=== PATIENT | female | born 1955 | race Caucasian/White ===

== ENCOUNTER 2021-01-02 20:26 | Outpatient (REF) | payer OTHER, SELFPAY | END 2021-01-02 20:27 | disposition home or self-care (01) | LOC: LBN 20:26 | PROVIDERS: Visit Provider Physician Assistant Medical | DX: L02.414 Cutaneous abscess of left upper limb (principal) | CPT/HCPCS: 87070; 87205 ==

== ENCOUNTER 2021-04-08 13:49 | Outpatient (REF) | payer MEDICARE, SELFPAY ==
--- NOTE | 2021-04-08 09:00 | PAPFT_PTH ---
PATIENT: Amber Puente LOC: [facility]#:[id number] AGE/SX: 65/F ROOM: RE04/08/[address]: Gosia Caldwell : 1955 BED: DIS: 04/08/2021 SPEC #: [id number] RECD: 04/08/21 18:28 STATUS: MILKA MCKEON #: [id number] KASANDRA: 04/08/21 09:[address]: Gosia Caldwell DEPT: [facility] [place] Cytology RECD BY: Emma Mathews Tissues: 1 - CX/ENDOCX FOR PAP SMEARS Procedures: PAP THIN PREP/[facility] Screening HPV DNA PROBE Comments: [id number]
== END 2021-04-08 13:50 | disposition home or self-care (01) ==
LOC: NCHCN 13:49
PROVIDERS: Visit Provider Nurse Practitioner Community Health
DX: Z12.4 Encounter for screening for malignant neoplasm of cervix (principal); Z11.51 Encounter for screening for human papillomavirus (HPV); Z01.419 Encounter for gynecological examination (general) (routine) without abnormal findings
CPT/HCPCS: 88142; 87624

== ENCOUNTER 2022-05-20 17:49 | Outpatient (REF) | payer MEDICARE, BC, SELFPAY ==
[2022-05-20 21:02] LABS: Abs Immature Grans 0.01 10^3/uL (0.0-0.06); Absolute Basophil Count 0.03 10^3/uL (0.0-0.2); Absolute Lymphocyte Count 1.71 10^3/uL (1.2-3.4); Absolute Monocyte Count 0.59 10^3/uL (0.1-0.8); Absolute Neutrophil Count 4.66 10^3/uL (1.2-6.7); Basophils % 0.4; Eosinophils % 1.4; HCT 36.5 % (36.0-46.0); HGB 12.3 g/dL (11.2-15.7); Immature Grans % 0.1; Lymphocytes % 24.1; MCH 31.9 pg (27.0-33.0); MCHC 33.7 % (32.0-36.0); MCV 95 fL (80-95); Monocytes % 8.3; Neutrophils % 65.7; Platelet Count 325 10^3/uL (130-400); RBC 3.85 10^6/uL (3.93-5.22); RDW 12.6 % (11.7-14.6); RDW-SD 43.8 fL
[2022-05-20 21:28] LABS: ALT 26 U/L (14-59); AST 20 U/L (15-37); Alkaline Phosphatase 58 U/L (46-116); Anion Gap 8.5 mmol/L (3-11); BUN 17 mg/dL (7-18); Bilirubin, Total 0.1 mg/dL (0.2-1.0); CO2 26.5 mmol/L (21.0-32.0); CREATININE 0.8 mg/dL (0.55-1.02); Calcium 9.6 mg/dL (8.5-10.1); Calculated LDL 111 mg/dL (<100); Chloride 107 mmol/L (98-107); Cholesterol 196 mg/dL (<200); Estimated GFR 81.21 (mL/min/1.73m2); Glucose 109 mg/dL (74-106); HDL Cholesterol 63 mg/dL (40-60); Potassium 4.2 mmol/L (3.5-5.1); Sodium 142 mmol/L (136-145); TSH 0.12 uIU/mL (0.36-3.74); Total Protein 7.3 g/dL (6.4-8.2); Triglyceride 110 mg/dL (<150)
[2022-05-20 21:35] LABS: Hemoglobin A1C 5.8 % (<5.7)
[2022-05-20 21:41] LABS: Vitamin D 25 Total 29.4 ng/mL (30-100)
[2022-05-20 22:24] LABS: FREE T4 1.15 ng/dL (0.76-1.46)
== END 2022-05-20 17:50 | disposition home or self-care (01) ==
LOC: NCHCN 17:49
PROVIDERS: Visit Provider Nurse Practitioner Family
DX: E03.9 Hypothyroidism, unspecified (principal); M85.88 Other specified disorders of bone density and structure, other site; Z00.00 Encounter for general adult medical examination without abnormal findings
CPT/HCPCS: 80053; 80061; 82306; 83036; 84439; 84443; 85025

== ENCOUNTER 2022-10-19 16:18 | Outpatient (REF) | payer MEDICARE, BC, SELFPAY ==
[2022-10-19 17:39] LABS: Hemoglobin A1C 5.6 % (<5.7)
[2022-10-19 17:40] LABS: Vitamin D 25 Total 31.9 ng/mL (30-100)
[2022-10-20 17:14] LABS: TSH 0.64 uIU/mL (0.36-3.74)
== END 2022-10-19 16:19 | disposition home or self-care (01) ==
LOC: NCHCN 16:18
PROVIDERS: PCP Nurse Practitioner Family; Visit Provider Family Medicine
DX: E03.9 Hypothyroidism, unspecified (principal); E55.9 Vitamin D deficiency, unspecified; R73.03 Prediabetes
CPT/HCPCS: 82306; 83036; 84439; 84443

== ENCOUNTER 2023-01-24 13:12 | Outpatient (REF) | payer MEDICARE, BC, SELFPAY ==
[2023-01-24 16:10] LABS: FREE T4 1.22 ng/dL (0.76-1.46); TSH 0.04 uIU/mL (0.36-3.74)
[2023-01-24 16:29] LABS: Hemoglobin A1C 5.4 % (<5.7)
== END 2023-01-24 13:13 | disposition home or self-care (01) ==
LOC: LBN 13:12
PROVIDERS: PCP Nurse Practitioner Family; Visit Provider Internal Medicine Endocrinology, Diabetes & Metabolism
DX: E03.9 Hypothyroidism, unspecified (principal); R73.03 Prediabetes
CPT/HCPCS: 83036; 84439; 84443

== ENCOUNTER 2023-05-20 20:12 | Outpatient (REF) | payer MEDICARE, BC, SELFPAY ==
[2023-05-20 21:02] LABS: Abs Immature Grans 0.02 10^3/uL (0.0-0.06); Absolute Basophil Count 0.05 10^3/uL (0.0-0.2); Absolute Eosinophil Count 0.17 10^3/uL (0.0-0.7); Absolute Lymphocyte Count 1.97 10^3/uL (1.2-3.4); Absolute Monocyte Count 0.55 10^3/uL (0.1-0.8); Absolute Neutrophil Count 3.73 10^3/uL (1.2-6.7); Basophils % 0.8; Eosinophils % 2.6; HCT 35.5 % (36.0-46.0); HGB 12.3 g/dL (11.2-15.7); Immature Grans % 0.3; Lymphocytes % 30.4; MCH 32.5 pg (27.0-33.0); MCHC 34.6 % (32.0-36.0); MCV 94 fL (80-95); MPV 9.8 fL (8.0-11.0); Monocytes % 8.5; Neutrophils % 57.4; Platelet Count 322 10^3/uL (130-400); RBC 3.79 10^6/uL (3.93-5.22); RDW 12.8 % (11.7-14.6); RDW-SD 43.8 fL; WBC 6.49 10^3/uL (4.4-10.8)
[2023-05-20 21:21] LABS: C-Reactive Protein < 0.05 mg/dL (0.0-0.3); Hemoglobin A1C 5.5 % (<5.7)
[2023-05-21 11:28] LABS: ESR (LRH) 11 mm/hr
== END 2023-05-20 20:13 | disposition home or self-care (01) ==
LOC: NCHCN 20:12
PROVIDERS: PCP Nurse Practitioner Family; Visit Provider Family Medicine
DX: G45.3 Amaurosis fugax (principal)
CPT/HCPCS: 85652; 83036; 85025; 86140

== ENCOUNTER 2023-09-05 12:07 | Outpatient (REF) | payer MEDICARE, BC, SELFPAY ==
--- OUTSIDE RECORDS SUMMARY | 2023-09-05 12:24 | XMS_ITS | CCD ---
Author Name Unknown Address [address] [place] [address] [phone] Organization Unknown Address [address] [place] [address] [phone] Care Team Providers Care Back Stayer Name Role Phone FRIDA, SHIVAM Chacon Attending Physician [phone] Vital Signs Vital Sign Value Unit Date/Time Recent/Initial ? BP Systolic 126 mmHg 09/23/2022 13:42 Initial VS BP Diastolic 70 mmHg 09/23/2022 13:42 Initia l VS Respiratory Rate 16 bpm 09/23/2022 13:42 In itial VS Heart Rate 65 bpm 09/23/2022 13:42 Initial VS O2 % BldC Oximetry 98 % 09/23/2022 13:42 Initial VS Body Temperature 36.7 degrees 09/23/2022 13:42 In itial VS BP Systolic 129 mmHg 09/23/2022 13:48 Most Re cent VS BP Diastolic 73 mmHg 09/23/2022 13:48 Most R ecent VS Respiratory Rate 17 bpm 09/23/2022 13:[address] Recent VS Heart Rate 64 bpm 09/23/2022 13:48 Most Rec ent VS O2 % BldC Oximetry 100 % 09/23/2022 13:48 Most Recent VS Allergies Allergy Code Allergy Type Reaction Status SULFA (sulfonamide) 0 Drug allergy Act kirby PENICILLIN 0 Drug allergy Active Procedures Procedure Code Procedure Type Date Colsc Flx w/[place] [address] CPT 09/23/2022 Colsc Flx With Directed Submucosal Njx Any Sbst 20661 CPT 09/23/2022 History of Immunizations Unknown or Not Available. Problems Unknown or Not Available. Results Unknown or Not Available. Active Medications Unknown or Not Available. Medications Administered During Visit Unknown or Not Available. Encounters Encounter Diagnosis Diagnosis Code Start Date Encounter for screening for malignant neoplasm o f colon Z1211 09/23/2022 Social History Smoking Status Code Start Date End Date Never smoker [id number] Patient Decision Aids Unknown or Not Available. Discharge Instructions You were admitted to [facility] on 09/23/2022 12:05 with a principal diagnosis of Encounter for screening for malignant neoplasm of colon You had the following procedures done:Colsc Flx w/Rmvl Of Tumor Polyp Lesion Snare TqColsc Flx With Directed Submucosal Njx Any Sbst You were discharged from [facility] on 09/23/2022 14:19 Should you have any questions prior to discharge, please contact a member of your healthcare team. If you have left the hospital and have any questions, please contact your primary care physician. Chief Complaint and Reason For Visit Unknown or Not Available. Function Status Unknown or Not Available. Plan of Care Unknown or Not Available. Referral/Transition of Care Unknown or Not Available.
--- OUTSIDE RECORDS SUMMARY | 2023-09-05 12:24 | XMS_ITS | CCD ---
Author Name Unknown Address [address] [place] [address] [id number] Organization Unknown Address [address] [place] [address] [phone] Care Team Providers Care Sizing Machine And Drier Operator Name Role Phone SADI CANELA Attending Physician [phone] Vital Signs Unknown or Not Available. Allergies Allergy Code Allergy Type Reaction Status SULFA (sulfonamide) 0 Drug allergy Act kirby PENICILLIN 0 Drug allergy Active Procedures Unknown or Not Available. History of Immunizations Unknown or Not Available. Problems Unknown or Not Available. Results Unknown or Not Available. Active Medications Unknown or Not Available. Medications Administered During Visit Unknown or Not Available. Encounters Encounter Diagnosis Diagnosis Code Start Date Iliotibial band syndrome, left leg M7632 03/30/2022 Social History Smoking Status Code Start Date End Date Never smoker [id number] Patient Decision Aids Unknown or Not Available. Discharge Instructions You were admitted to [facility] on 03/30/2022 14:15 with a principal diagnosis of Iliotibial band syndrome, left leg You were discharged from [facility] on 05/13/2022 10:20 Should you have any questions prior to [...]
--- OUTSIDE RECORDS SUMMARY | 2023-09-05 12:25 | XMS_ITS | CCD ---
Author Name Unknown Address [address] [place] [address] [phone] Organization Unknown Address [address] [place] [address] [id number] Care Team Providers Care Auto Service Instructor Name Role Phone MIGUEL LANDA Attending Physician [phone] MIGUEL LANDA Rounding (Secondary) Physic skyla [phone] Vital Signs Unknown or Not Available. Allergies [...] Encounters Encounter Diagnosis Diagnosis Code Start Date Incomplete rotator cuff tear or rupture of right shoulder, not specified as traumatic [id number] 10/30/2021 Social History Smoking Status Code Start Date End Date Never smoker [id number] Patient Decision Aids Unknown or Not Available. Discharge Instructions You were admitted to [facility] on 10/30/2021 12:48 with a principal diagnosis of Incomplete rotator cuff tear or rupture of right shoulder, not specified as traumatic You were discharged from [facility] on 10/30/2021 00:00 Should you have any questions prior to [...]
--- OUTSIDE RECORDS SUMMARY | 2023-09-05 12:25 | XMS_ITS | CCD ---
Author Name Unknown Address [address] [place] [address] [id number] Organization Unknown Address [address] [place] [address] [phone] Care Team Providers Care Caramel Candy Maker Name Role Phone MARIAM GORDON Attending Physician [phone] Vital Signs Unknown or Not Available. Allergies [...] Encounters Encounter Diagnosis Diagnosis Code Start Date Pain in right wrist [id number] 08/25/2021 Social History Smoking Status Code Start Date End Date Never smoker [id number] Patient Decision Aids Unknown or Not Available. Discharge Instructions You were admitted to [facility] on 08/25/2021 09:49 with a principal diagnosis of Pain in right wrist You were discharged from [facility] on 08/25/2021 09:49 Should you have any questions prior to discharge, please contact a member of your healthcare team. If you have left the hospital and have any questions, please contact your primary care physician. Chief Complaint and Reason For Visit Chief Complaint Date of Onset RT WRIST PAIN Function Status Unknown or Not Available. Plan of Care Unknown or Not Available. Referral/Transition of Care Unknown or Not Available.
--- OUTSIDE RECORDS SUMMARY | 2023-09-05 12:25 | XMS_ITS | CCD ---
Author Name Unknown Address [address] [place] [address] [phone] Organization Unknown Address [address] [place] [address] [phone] Care Team Providers Care Motor Assembler Name Role Phone MIGUEL LANDA Attending Physician [phone] MIGUEL LANDA Rounding (Secondary) Physic skyla [phone] Vital Signs Unknown or Not Available. Allergies [...] Encounters Encounter Diagnosis Diagnosis Code Start Date Nontraumatic complete ruptur e of rotator cuff of right shoulder [id number] 01/22/2022 Social History Smoking Status Code Start Date End Date Never smoker [id number] Patient Decision Aids Unknown or Not Available. Discharge Instructions You were admitted to [facility] on 01/22/2022 14:41 with a principal diagnosis of Complete rotator cuff tear or rupture of right shoulder, not specified as traumatic You were discharged from [facility] on 01/22/2022 00:00 Should you have any questions prior [...]
--- OUTSIDE RECORDS SUMMARY | 2023-09-05 12:25 | XMS_ITS | CCD ---
Author Name Unknown Address [address] [place] [address] [phone] Organization Unknown Address [address] [place] [address] [phone] Care Team Providers Care Hair Stylist Name Role Phone MARIAM GORDON Attending Physician [phone] Vital Signs Unknown or Not Available. Allergies [...] of right shoulder, not specified as traumatic Z77516 10/26/2021 Social History Smoking Status Code Start Date End Date Never smoker [id number] Patient Decision Aids Unknown or Not Available. Discharge Instructions You were admitted to [facility] on 10/26/2021 12:53 with a principal diagnosis of Incomplete rotator cuff tear or rupture of right shoulder, not specified as traumatic You were discharged from [facility] on 10/26/2021 12:53 Should you have any questions prior to discharge, please contact a member of your healthcare team. If you have left the hospital and have any questions, please contact your primary care physician. Chief Complaint and Reason For Visit Chief Complaint Date of Onset RTC/LABRAL TEAR Function Status Unknown or Not Available. Plan of Care Unknown or Not Available. Referral/Transition of Care Unknown or Not Available.
--- OUTSIDE RECORDS SUMMARY | 2023-09-05 12:25 | XMS_ITS | CCD ---
Author Name Unknown Address [address] [place] [address] [phone] Organization Unknown Address [address] [place] [address] [phone] Care Team Providers Care Notch Grinder Name Role Phone MARIAM GORDON Attending Physician [phone] MARIAM GORDON Rounding (Secondary) Physician [phone] Vital Signs Unknown or Not Available. Allergies [...] Code Start Date Pain in right wrist X09385 10/07/2021 Social History Smoking Status Code Start Date End Date Never smoker [id number] Patient Decision Aids Unknown or Not Available. Discharge Instructions You were admitted to [facility] on 10/07/2021 09:10 with a principal diagnosis of Pain in right wrist You were discharged from [facility] on 10/07/2021 00:00 Should you have any questions prior [...]
--- OUTSIDE RECORDS SUMMARY | 2023-09-05 12:25 | XMS_ITS | CCD ---
Author Name Unknown Address [address] [place] [address] [id number] Organization Unknown Address [address] [place] [address] [phone] Care Team Providers Care Mine Promotor Name Role Phone MINERVA HENDRICKS Attending Physician [phone] MINERVA HENDRICKS Rounding (Secondary) Physic skyla [phone] Vital Signs Unknown or Not Available. Allergies [...] Encounters Encounter Diagnosis Diagnosis Code Start Date Bursitis of right shoulder M7551 08/27 Social History Smoking Status Code Start Date End Date Never smoker [id number] Patient Decision Aids Unknown or Not Available. Discharge Instructions You were admitted to [facility] on 08/27/2021 13:07 with a principal diagnosis of Bursitis of right shoulder You were discharged from [facility] on 08/27/2021 00:00 Should you have any questions prior [...]
--- OUTSIDE RECORDS SUMMARY | 2023-09-05 12:26 | XMS_ITS | CCD ---
Author Name Unknown Address [address] [place] [address] [phone] Organization Unknown Address [address] [place] [address] [phone] Care Team Providers Care Para Professional Name Role Phone BRIGITTE MELI Noonan Attending Physician [phone] DAVID CHRISTINA Er Physician 3 [phone] Maggi, LAKESHA Registered Nurse [phone] YOBANI Wagner Registered Nurse [phone] Maggi, LAKSEHA Registered Nurse [phone] Vital Signs Vital Sign Value Unit Date/Time Recent/Initial ? BMI (Body Mass Index) 25.24 kg/m^2 08/07/2021 20: 14 Initial VS Weight Measured 138 lbs 08/07/2021 20:14 Ini tial VS Height 62 in 08/07/2021 20:14 Initial VS BSA (Body Surface Area) 1.65 m^2 08/07/2021 2 0:14 Initial VS BP Systolic 142 mmHg 08/07/2021 20:14 Initial VS BP Diastolic 80 mmHg 08/07/2021 20:14 Initia l VS Respiratory Rate 18 bpm 08/07/2021 20:14 In itial VS Heart Rate 74 bpm 08/07/2021 20:14 Initial VS O2 % BldC Oximetry 99 % 08/07/2021 20:14 Initial VS Body Temperature 36.7 degrees 08/07/2021 20:14 In itial VS Allergies Allergy Code Allergy Type Reaction Status SULFA (sulfonamide) 0 Drug allergy Act kirby PENICILLIN 0 Drug allergy Active Procedures Unknown or Not Available. History of Immunizations Unknown or Not Available. Problems Unknown or Not Available. Results Unknown or Not Available. Active Medications Medications Administered During Visit Medication Dose Units Frequency Route Date/Time of Last Dose ACETAMINOPHEN TABLET: 325MG 325 MG X1 PO 08/07/2021 22:29 Encounters Encounter Diagnosis Diagnosis Code Start Date Unspecified dislocation of r ight acromioclavicular joint, initial encounter [id number] 08/07/2021 Social History Smoking Status Code Start Date End Date Never smoker [id number] Patient Decision Aids Unknown or Not Available. Discharge Instructions You were admitted to [facility] on 08/07/2021 19:54 with a principal diagnosis of Unspecified dislocation of right acromioclavicular joint, initial encounter You were discharged from [facility] on 08/07/2021 22:30 Should you have any questions prior to discharge, please contact a member of your healthcare team. If you have left the hospital and have any questions, please contact your primary care physician. Chief Complaint and Reason For Visit Chief Complaint Date of Onset RIGHT SHOULDER INJURY Function Status Unknown or Not Available. Plan of Care Unknown or Not Available. Referral/Transition of Care Unknown or Not Available.
--- OUTSIDE RECORDS SUMMARY | 2023-09-05 12:26 | XMS_ITS | CCD ---
Author Name Unknown Address [address] [place] [address] [phone] Organization Unknown Address [address] [place] [address] [phone] Care Team Providers Care Assistant Child Care Teacher Name Role Phone MARIAM GORDON Attending Physician [phone] MARIAM GORDON Rounding (Secondary) Physician [phone] Vital Signs Unknown or Not Available. Allergies [...] Encounters Encounter Diagnosis Diagnosis Code Start Date Injury of shoulder and upper arm [id number] 08/13/2021 Social History Smoking Status Code Start Date End Date Never smoker [id number] Patient Decision Aids Unknown or Not Available. Discharge Instructions You were admitted to [facility] on 08/13/2021 13:15 with a principal diagnosis of Unspecified injury of right shoulder and upper arm, initial encounter You were discharged from [facility] on 08/13/2021 00:00 Should you have any questions prior [...]
[2023-09-05 15:50] LABS: FREE T4 1.07 ng/dL (0.76-1.46); TSH 0.78 uIU/mL (0.36-3.74)
[2023-09-05 17:16] LABS: Hemoglobin A1C 5.5 % (<5.7)
== END 2023-09-05 12:08 | disposition home or self-care (01) ==
LOC: LBN 12:07
PROVIDERS: PCP Nurse Practitioner Family; Visit Provider Internal Medicine Endocrinology, Diabetes & Metabolism
DX: E03.9 Hypothyroidism, unspecified (principal); R73.03 Prediabetes
CPT/HCPCS: 83036; 84439; 84443

== ENCOUNTER 2024-03-27 11:56 | Outpatient (REF) | payer MEDICARE, BC, SELFPAY ==
[2024-03-27 15:04] LABS: HCT 36.4 % (36.0-46.0); HGB 12.3 g/dL (11.2-15.7); MCH 32.2 pg (27.0-33.0); MCHC 33.8 % (32.0-36.0); MCV 95 fL (80-95); MPV 10.5 fL (8.0-11.0); Platelet Count 297 10^3/uL (130-400); RBC 3.82 10^6/uL (3.93-5.22); RDW 12.8 % (11.7-14.6); RDW-SD 45.1 fL; WBC 6.22 10^3/uL (4.4-10.8)
== END 2024-03-27 11:57 | disposition home or self-care (01) ==
LOC: NCHCN 11:56
PROVIDERS: PCP Nurse Practitioner Family; Visit Provider Physician Assistant
DX: R71.8 Other abnormality of red blood cells (principal)
CPT/HCPCS: 85027

== ENCOUNTER 2024-06-11 15:08 | Outpatient (REF) | payer MEDICARE, BC, SELFPAY ==
[2024-06-11 17:15] LABS: Hemoglobin A1C 5.4 % (<5.7)
== END 2024-06-11 15:09 | disposition home or self-care (01) ==
LOC: NCHCN 15:08
PROVIDERS: PCP Nurse Practitioner Family; Visit Provider Family Medicine
DX: R73.03 Prediabetes (principal); E03.9 Hypothyroidism, unspecified
CPT/HCPCS: 83036; 84443

== ENCOUNTER 2024-08-24 11:37 | Outpatient (REF) | payer MEDICARE, BC, SELFPAY ==
[2024-08-24 15:27] LABS: TSH 0.93 uIU/mL (0.36-3.74)
== END 2024-08-24 11:38 | disposition home or self-care (01) ==
LOC: NCHCN 11:37
PROVIDERS: PCP Nurse Practitioner Family; Visit Provider Family Medicine
DX: E03.9 Hypothyroidism, unspecified (principal)
CPT/HCPCS: 84443

== ENCOUNTER 2025-02-06 13:34 | Outpatient (REF) | payer MEDICARE, BC, SELFPAY ==
[2025-02-06 16:27] LABS: ALT 30 U/L (14-59); AST 27 U/L (15-37); Albumin 3.9 g/dL (3.4-5.0); Alkaline Phosphatase 65 U/L (46-116); Bilirubin, Direct 0.1 mg/dL (0.0-0.2); Bilirubin, Total 0.4 mg/dL (0.2-1.0); Total Protein 7.2 g/dL (6.4-8.2)
== END 2025-02-06 13:35 | disposition home or self-care (01) ==
LOC: LBN 13:34
PROVIDERS: PCP Nurse Practitioner Family; Visit Provider Physician Assistant
DX: B35.1 Tinea unguium (principal)
CPT/HCPCS: 80076

== ENCOUNTER 2025-07-22 16:14 | Outpatient (REF) | payer MEDICARE, BC, SELFPAY ==
[2025-07-22 21:40] LABS: Cholesterol 191 mg/dL (<200); HDL Cholesterol 67 mg/dL (>or=50)
[2025-07-22 21:42] LABS: TSH 0.10 uIU/mL (0.55-4.78)
[2025-07-22 21:45] LABS: Hemoglobin A1C 5.4 % (<5.7)
== END 2025-07-22 16:15 | disposition home or self-care (01) ==
LOC: NCHCN 16:14
PROVIDERS: PCP Nurse Practitioner Family; Visit Provider Family Medicine
DX: Z13.1 Encounter for screening for diabetes mellitus (principal); E03.9 Hypothyroidism, unspecified; E78.5 Hyperlipidemia, unspecified
CPT/HCPCS: 80061; 83036; 84443